=== PATIENT | male | born 1970 | race Caucasian/White ===

== ENCOUNTER 2021-01-26 13:00 | Inpatient (IN) | payer BC, OTHER ==
[~2021-01-26] VITALS: Ht 198.1 cm; Wt 129.5 kg
[2021-01-26] MEDS ORDERED: SODIUM CHLORIDE 0.9% 1,000ML IVBOLUS ONE (13:30)
--- NOTE | 2021-01-26 13:35 | NUR ---
PT HAS HAD COVID LIKE SYMPTOMS SINCE 01/17/2021 AFTER BEING EXPOSED TO SOMEONE WITH COVID. HAS HAD A SORE THROAT THAT HAS BEEN ONLY ABLE FRUIT AND SOFT FOOD LIKE PUDDING AND JELLO
[2021-01-26] MEDS ORDERED: PLEASE ENTER ALLERGIES MC SCH (14:00)
[2021-01-26 14:01] LABS: BASOPHILS % (AUTO) 0 % (0-1); EOSINOPHILS % (AUTO) 0 % (1-7); LYMPHOCYTES % (AUTO) 16 % (22-44); MEAN CORPUSCULAR HEMOGLOBIN 30.6 pg (27.5-34.5); MEAN CORPUSCULAR HGB CONC 34.3 g/dL (33.2-36.2); MEAN PLATELET VOLUME 7.6 fL (7.4-10.4); MONOCYTES % (AUTO) 8 % (2-9); NEUTROPHILS % (AUTO) 75 % (42-75); PLATELET COUNT 162 x10^3/uL (130-400); RED BLOOD COUNT 4.77 x10^6/uL (4.38-5.82); RED CELL DISTRIBUTION WIDTH 13.1 % (9.4-14.8)
--- NOTE | 2021-01-26 14:04 | NUR ---
SINCE THE December GENERAL WEAKNESS AND PAIN IN THE BACK OF NECK WITH A MINOR HEADACHE.
[2021-01-26 14:09] LABS: ANION GAP 10 mmol/L (5-15); CALCIUM 8.3 mg/dL (8.5-10.1); CHLORIDE 103 mmol/L (98-107)
[2021-01-26 14:12] LABS: TROPONIN I < 0.015 ng/mL (0.000-0.045)
[2021-01-26] MEDS ORDERED: SACU1TAB7 PO (14:53)
[2021-01-26] MEDS ORDERED: SPIR25TA5 PO (14:53)
[2021-01-26] MEDS ORDERED: CARV-39 PO (14:53)
[2021-01-26] MEDS ORDERED: METFORMIN PO (14:54)
[2021-01-26] MEDS ORDERED: NIAC-17 BC (14:56)
[2021-01-26] MEDS ORDERED: CEFTRIAXONE 1,000 MG in DEXTROSE 5% 50 ML IVPB ONE (15:00)
[2021-01-26] MEDS ORDERED: DEXAMETHASONE 4 MG/ML, 1ML IVPush ONE (15:00)
[2021-01-26] MEDS ORDERED: AZITHROMYCIN 500 MG in SODIUM CHLORIDE 0.9% 250 ML IV ONE (15:00)
[2021-01-26] MEDS ORDERED: DEXAMETHASONE 4 MG/ML, 1ML ONE (15:25)
--- NOTE | 2021-01-26 15:25 | NUR ---
ATTEMPTED TO GIVE REPORT X1. RN NOT AVAILABLE
[2021-01-26] MEDS ORDERED: ONDANSETRON 2MG/ML, 2ML IVPush PRN (15:30)
[2021-01-26] MEDS ORDERED: hydrALAzine 20 MG/ML, 1ML IVPush PRN (15:30)
[2021-01-26 15:37] LABS: BILIRUBIN, DIRECT 0.2 mg/dL (0.1-0.2)
--- NOTE | 2021-01-26 15:43 | NUR ---
REPORT TO LOPEZ LYONS AND TO BE TRANSPORTED TO FLOOR
[2021-01-26 15:47] LABS: BILIRUBIN,INDIRECT 0.3 mg/dL (0.0-2.0); BILIRUBIN,TOTAL 0.5 mg/dL (0.2-1.0); TOTAL PROTEIN 7.3 g/dL (6.4-8.2)
[2021-01-26] MEDS: INSULIN LISPRO 100 UNITS/ML, PEN SQ-INSULIN SCH ×2 (16:00→21:00)
[2021-01-26] MEDS: ASCORBIC ACID 250 MG TAB PO SCH (17:13)
[2021-01-26 17:19] LABS: MICROSCOPIC NOT IND
[2021-01-26] MEDS ORDERED: EMPA25TA PO (17:19)
[2021-01-26] MEDS: ENOXAPARIN 60 MG/0.6 ML SQ SCH (17:38)
[2021-01-26 17:42] VITALS: BP 133/81
[2021-01-26 17:50] LABS: RAPID INFLUENZA A Negative (Negative); RAPID INFLUENZA B Negative (Negative)
[2021-01-26 18:51] VITALS: BP 129/80
[2021-01-26 21:09] VITALS: BP 132/81
[2021-01-26] MEDS: SACUBITRIL/VALSARTAN 24MG-26MG TAB PO SCH (21:11)
[2021-01-26] MEDS: MELATONIN 5 MG TABLET PO SCH (21:11)
[2021-01-26] MEDS: GUAIFENESIN/COD200MG-20MG/10ML LIQUID PO PRN (21:11)
[2021-01-26] MEDS: THIAMINE 100MG TABLET PO SCH (21:11)
[2021-01-26] MEDS: CARVEDILOL 25 MG TABLET PO SCH (21:11)
[2021-01-26] MEDS: SODIUM CHLORIDE FLUSH 10ML SYR IVF SCH (21:12)
[2021-01-27 01:11] VITALS: BP 131/81
[2021-01-27] MEDS: GUAIFENESIN/COD200MG-20MG/10ML LIQUID PO PRN (04:23)
[2021-01-27] MEDS ORDERED: REMDESIVIR 200 MG in SODIUM CHLORIDE 0.9% 250 ML IVPB ONE (07:00)
[2021-01-27] MEDS ORDERED: ALBUTEROL HFA 90 MCG/SPRAY INH SCH (07:00)
[2021-01-27 07:41] VITALS: BP 142/82
[2021-01-27] MEDS: INSULIN LISPRO 100 UNITS/ML, PEN SQ-INSULIN SCH ×4 (07:51→21:57)
[2021-01-27] MEDS: CEFTRIAXONE 2 GM in DEXTROSE 5% 50 ML IVPB SCH (08:07)
[2021-01-27] MEDS: ZINC SULFATE 220 MG CAPSULE PO SCH (08:08)
[2021-01-27] MEDS: CARVEDILOL 25 MG TABLET PO SCH ×2 (08:08→20:50)
[2021-01-27] MEDS: AZITHROMYCIN 500 MG TABLET PO SCH (08:08)
[2021-01-27] MEDS: CHOLECALCIFEROL 1,000 UNIT TABLET PO SCH (08:08)
[2021-01-27] MEDS: DEXAMETHASONE 4 MG/ML, 1ML IVPush SCH (08:08)
[2021-01-27] MEDS: NIACIN 500 MG TABLET.ER PO SCH (08:08)
[2021-01-27] MEDS: THIAMINE 100MG TABLET PO SCH ×2 (08:09→20:51)
[2021-01-27] MEDS: ASCORBIC ACID 250 MG TAB PO SCH ×2 (08:09→16:04)
[2021-01-27] MEDS: SPIRONOLACTONE 25 MG TABLET PO SCH (08:09)
[2021-01-27] MEDS: SACUBITRIL/VALSARTAN 24MG-26MG TAB PO SCH ×2 (08:09→20:50)
[2021-01-27] MEDS: SODIUM CHLORIDE FLUSH 10ML SYR IVF SCH ×2 (08:10→20:51)
[2021-01-27 09:38] LABS: BASOPHILS % (AUTO) 0 % (0-1); EOSINOPHILS % (AUTO) 0 % (1-7); LYMPHOCYTES % (AUTO) 10 % (22-44); MEAN CORPUSCULAR HGB CONC 33.7 g/dL (33.2-36.2); MEAN PLATELET VOLUME 7.4 fL (7.4-10.4); MONOCYTES % (AUTO) 9 % (2-9); NEUTROPHILS % (AUTO) 81 % (42-75); PLATELET COUNT 188 x10^3/uL (130-400); RED BLOOD COUNT 4.62 x10^6/uL (4.38-5.82); RED CELL DISTRIBUTION WIDTH 13.3 % (9.4-14.8)
[2021-01-27 09:49] LABS: ANION GAP 12 mmol/L (5-15); CALCIUM 8.8 mg/dL (8.5-10.1); CHLORIDE 103 mmol/L (98-107)
[2021-01-27] MEDS ORDERED: ALBUTEROL SULFATE 2.5 MG/3 ML NPPB SCH (11:30)
[2021-01-27 12:20] VITALS: BP 129/79
[2021-01-27] MEDS: ALBUTEROL HFA 90 MCG/SPRAY INH SCH ×2 (15:00→21:56)
[2021-01-27] MEDS: ENOXAPARIN 60 MG/0.6 ML SQ SCH (16:08)
[2021-01-27 18:34] VITALS: BP 130/83
[2021-01-27] MEDS: MELATONIN 5 MG TABLET PO SCH (20:51)
[2021-01-27] MEDS ORDERED: INSULIN GLARGINE 100 UNITS/ML, PEN SQ-INSULIN SCH (21:00)
[2021-01-27 21:04] VITALS: BP 147/85
[2021-01-28] MEDS: ALBUTEROL HFA 90 MCG/SPRAY INH SCH ×4 (03:10→22:18)
[2021-01-28 03:11] VITALS: BP 121/77
[2021-01-28 05:58] LABS: ALBUMIN 2.7 g/dL (3.4-5.0); ANION GAP 8 mmol/L (5-15); CALCIUM 8.7 mg/dL (8.5-10.1); CHLORIDE 105 mmol/L (98-107)
[2021-01-28 06:01] LABS: ALANINE AMINOTRANSFERASE 37 U/L (12-78); ALKALINE PHOSPHATASE 51 U/L (45-117); BILIRUBIN,TOTAL 0.4 mg/dL (0.2-1.0); CREATININE 0.78 mg/dL (0.7-1.3); TOTAL PROTEIN 7.3 g/dL (6.4-8.2)
[2021-01-28] MEDS: INSULIN LISPRO 100 UNITS/ML, PEN SQ-INSULIN SCH ×4 (07:44→22:17)
[2021-01-28] MEDS: CEFTRIAXONE 2 GM in DEXTROSE 5% 50 ML IVPB SCH (07:44)
[2021-01-28 07:45] VITALS: BP 122/77
[2021-01-28] MEDS ORDERED: REMDESIVIR 100 MG in SODIUM CHLORIDE 0.9% 250 ML IVPB SCH (08:00)
[2021-01-28] MEDS: REMDESIVIR 100 MG in SODIUM CHLORIDE 0.9% 250 ML IVPB SCH (08:25)
[2021-01-28] MEDS ORDERED: INSULIN GLARGINE 100 UNITS/ML, PEN SQ-INSULIN SCH (09:00)
[2021-01-28] MEDS: NIACIN 500 MG TABLET.ER PO SCH (09:59)
[2021-01-28] MEDS: ZINC SULFATE 220 MG CAPSULE PO SCH (10:00)
[2021-01-28] MEDS: ASCORBIC ACID 250 MG TAB PO SCH ×2 (10:00→16:54)
[2021-01-28] MEDS: CHOLECALCIFEROL 1,000 UNIT TABLET PO SCH (10:01)
[2021-01-28] MEDS: SPIRONOLACTONE 25 MG TABLET PO SCH (10:01)
[2021-01-28] MEDS: AZITHROMYCIN 500 MG TABLET PO SCH (10:01)
[2021-01-28] MEDS: THIAMINE 100MG TABLET PO SCH ×2 (10:01→22:18)
[2021-01-28] MEDS: DEXAMETHASONE 4 MG/ML, 1ML IVPush SCH (10:02)
[2021-01-28] MEDS: SACUBITRIL/VALSARTAN 24MG-26MG TAB PO SCH ×2 (10:02→22:17)
[2021-01-28] MEDS: CARVEDILOL 25 MG TABLET PO SCH ×2 (10:02→22:18)
[2021-01-28] MEDS: SODIUM CHLORIDE FLUSH 10ML SYR IVF SCH ×2 (10:03→22:19)
[2021-01-28] MEDS: FUROSEMIDE 40 MG/4 ML IV SCH (10:31)
[2021-01-28] MEDS: ACETAMINOPHEN 325 MG TABLET PO PRN (10:32)
[2021-01-28 12:01] VITALS: BP 115/74
[2021-01-28] MEDS: ENOXAPARIN 60 MG/0.6 ML SQ SCH (16:52)
[2021-01-28 20:58] VITALS: BP 134/83
[2021-01-28] MEDS: INSULIN GLARGINE 100 UNITS/ML, PEN SQ-INSULIN SCH (22:17)
[2021-01-28] MEDS: MELATONIN 5 MG TABLET PO SCH (22:18)
[2021-01-28] MEDS: LINEZOLID 600 MG TABLET PO SCH (22:18)
[2021-01-29 00:27] VITALS: BP 124/85
[2021-01-29] MEDS: ALBUTEROL HFA 90 MCG/SPRAY INH SCH ×4 (04:32→21:55)
[2021-01-29 05:29] LABS: ALBUMIN 2.8 g/dL (3.4-5.0); ANION GAP 7 mmol/L (5-15); CALCIUM 9.2 mg/dL (8.5-10.1); CHLORIDE 105 mmol/L (98-107)
[2021-01-29 05:33] LABS: ALANINE AMINOTRANSFERASE 29 U/L (12-78); ALKALINE PHOSPHATASE 48 U/L (45-117); BILIRUBIN,TOTAL 0.4 mg/dL (0.2-1.0); CREATININE 0.88 mg/dL (0.7-1.3); TOTAL PROTEIN 7.1 g/dL (6.4-8.2)
[2021-01-29 06:36] VITALS: BP 126/74
[2021-01-29] MEDS: CEFTRIAXONE 2 GM in DEXTROSE 5% 50 ML IVPB SCH (07:49)
[2021-01-29] MEDS: INSULIN LISPRO 100 UNITS/ML, PEN SQ-INSULIN SCH ×4 (08:00→21:56)
[2021-01-29] MEDS: ASCORBIC ACID 250 MG TAB PO SCH ×2 (08:07→16:00)
[2021-01-29] MEDS: THIAMINE 100MG TABLET PO SCH ×2 (08:08→21:53)
[2021-01-29] MEDS: CHOLECALCIFEROL 1,000 UNIT TABLET PO SCH (08:08)
[2021-01-29] MEDS: CARVEDILOL 25 MG TABLET PO SCH ×2 (08:09→21:53)
[2021-01-29] MEDS: SACUBITRIL/VALSARTAN 24MG-26MG TAB PO SCH ×2 (08:09→21:53)
[2021-01-29] MEDS: ZINC SULFATE 220 MG CAPSULE PO SCH (08:09)
[2021-01-29] MEDS: SPIRONOLACTONE 25 MG TABLET PO SCH (08:10)
[2021-01-29] MEDS: FUROSEMIDE 40 MG/4 ML IV SCH (08:10)
[2021-01-29] MEDS: DEXAMETHASONE 4 MG/ML, 1ML IVPush SCH (08:10)
[2021-01-29] MEDS: SODIUM CHLORIDE FLUSH 10ML SYR IVF SCH ×2 (08:11→22:14)
[2021-01-29] MEDS: AZITHROMYCIN 500 MG TABLET PO SCH (08:14)
[2021-01-29] MEDS: LINEZOLID 600 MG TABLET PO SCH ×2 (08:14→21:53)
[2021-01-29] MEDS: NIACIN 500 MG TABLET.ER PO SCH (08:20)
[2021-01-29] MEDS: INSULIN GLARGINE 100 UNITS/ML, PEN SQ-INSULIN SCH ×2 (08:24→21:57)
[2021-01-29] MEDS: REMDESIVIR 100 MG in SODIUM CHLORIDE 0.9% 250 ML IVPB SCH (10:06)
[2021-01-29 12:01] VITALS: BP 125/83
[2021-01-29] MEDS ORDERED: FUROSEMIDE 20 MG/2 ML IV ONE (14:30)
[2021-01-29 15:41] VITALS: BP 121/79
[2021-01-29] MEDS: ENOXAPARIN 60 MG/0.6 ML SQ SCH (16:01)
[2021-01-29 20:04] VITALS: BP 130/89
[2021-01-29] MEDS: MELATONIN 5 MG TABLET PO SCH (21:54)
[2021-01-30] VITALS: BP 112/78
[2021-01-30] MEDS: ALBUTEROL HFA 90 MCG/SPRAY INH SCH ×4 (03:42→20:48)
[2021-01-30 05:54] LABS: CHLORIDE 103 mmol/L (98-107)
[2021-01-30 06:00] LABS: ALANINE AMINOTRANSFERASE 36 U/L (12-78); ALBUMIN 3.1 g/dL (3.4-5.0); ALKALINE PHOSPHATASE 56 U/L (45-117); ANION GAP 7 mmol/L (5-15); BILIRUBIN,TOTAL 0.6 mg/dL (0.2-1.0); CREATININE 0.78 mg/dL (0.7-1.3); TOTAL PROTEIN 7.8 g/dL (6.4-8.2)
[2021-01-30 08:10] VITALS: BP 111/76
[2021-01-30] MEDS: INSULIN LISPRO 100 UNITS/ML, PEN SQ-INSULIN SCH ×4 (09:17→21:01)
[2021-01-30] MEDS: INSULIN GLARGINE 100 UNITS/ML, PEN SQ-INSULIN SCH ×2 (09:17→21:00)
[2021-01-30] MEDS: CEFTRIAXONE 2 GM in DEXTROSE 5% 50 ML IVPB SCH (09:18)
[2021-01-30] MEDS: FUROSEMIDE 40 MG/4 ML IV SCH (09:18)
[2021-01-30] MEDS: LINEZOLID 600 MG TABLET PO SCH ×2 (09:18→20:47)
[2021-01-30] MEDS: AZITHROMYCIN 500 MG TABLET PO SCH (09:18)
[2021-01-30] MEDS: DEXAMETHASONE 4 MG/ML, 1ML IVPush SCH (09:18)
[2021-01-30] MEDS: CARVEDILOL 25 MG TABLET PO SCH ×2 (09:18→20:47)
[2021-01-30] MEDS: SPIRONOLACTONE 25 MG TABLET PO SCH (09:18)
[2021-01-30] MEDS: CHOLECALCIFEROL 1,000 UNIT TABLET PO SCH (09:19)
[2021-01-30] MEDS: ASCORBIC ACID 250 MG TAB PO SCH ×2 (09:19→16:44)
[2021-01-30] MEDS: SACUBITRIL/VALSARTAN 24MG-26MG TAB PO SCH ×2 (09:19→20:46)
[2021-01-30] MEDS: THIAMINE 100MG TABLET PO SCH ×2 (09:19→20:47)
[2021-01-30] MEDS: NIACIN 500 MG TABLET.ER PO SCH (09:20)
[2021-01-30] MEDS: ZINC SULFATE 220 MG CAPSULE PO SCH (09:20)
[2021-01-30] MEDS: SODIUM CHLORIDE FLUSH 10ML SYR IVF SCH ×2 (09:20→20:46)
[2021-01-30] MEDS: REMDESIVIR 100 MG in SODIUM CHLORIDE 0.9% 250 ML IVPB SCH (10:30)
[2021-01-30 12:20] VITALS: BP 111/76
[2021-01-30] MEDS: ENOXAPARIN 60 MG/0.6 ML SQ SCH (16:40)
[2021-01-30 20:28] VITALS: BP 131/86
[2021-01-30] MEDS: MELATONIN 5 MG TABLET PO SCH (20:46)
[2021-01-31 01:52] VITALS: BP 133/86
[2021-01-31] MEDS: ALBUTEROL HFA 90 MCG/SPRAY INH SCH ×2 (03:00→09:12)
[2021-01-31 05:21] LABS: ALBUMIN 2.8 g/dL (3.4-5.0); ANION GAP 5 mmol/L (5-15); CALCIUM 8.7 mg/dL (8.5-10.1); CHLORIDE 103 mmol/L (98-107)
[2021-01-31 05:25] LABS: ALANINE AMINOTRANSFERASE 42 U/L (12-78); ALKALINE PHOSPHATASE 48 U/L (45-117); BILIRUBIN,TOTAL 0.5 mg/dL (0.2-1.0); CREATININE 0.86 mg/dL (0.7-1.3); TOTAL PROTEIN 6.8 g/dL (6.4-8.2)
[2021-01-31] MEDS: INSULIN LISPRO 100 UNITS/ML, PEN SQ-INSULIN SCH ×4 (07:47→21:41)
[2021-01-31 07:57] VITALS: BP 121/80
[2021-01-31] MEDS: CEFTRIAXONE 2 GM in DEXTROSE 5% 50 ML IVPB SCH (09:09)
[2021-01-31] MEDS: FUROSEMIDE 40 MG/4 ML IV SCH (09:09)
[2021-01-31] MEDS: ASCORBIC ACID 250 MG TAB PO SCH ×2 (09:10→16:38)
[2021-01-31] MEDS: CHOLECALCIFEROL 1,000 UNIT TABLET PO SCH (09:10)
[2021-01-31] MEDS: SACUBITRIL/VALSARTAN 24MG-26MG TAB PO SCH ×2 (09:10→21:24)
[2021-01-31] MEDS: ZINC SULFATE 220 MG CAPSULE PO SCH (09:10)
[2021-01-31] MEDS: LINEZOLID 600 MG TABLET PO SCH ×2 (09:10→21:24)
[2021-01-31] MEDS: AZITHROMYCIN 500 MG TABLET PO SCH (09:10)
[2021-01-31] MEDS: THIAMINE 100MG TABLET PO SCH ×2 (09:10→21:24)
[2021-01-31] MEDS: DEXAMETHASONE 4 MG/ML, 1ML IVPush SCH (09:10)
[2021-01-31] MEDS: SODIUM CHLORIDE FLUSH 10ML SYR IVF SCH ×2 (09:11→21:23)
[2021-01-31] MEDS: CARVEDILOL 25 MG TABLET PO SCH ×2 (09:11→21:23)
[2021-01-31] MEDS: SPIRONOLACTONE 25 MG TABLET PO SCH (09:11)
[2021-01-31] MEDS: NIACIN 500 MG TABLET.ER PO SCH (09:17)
[2021-01-31] MEDS: INSULIN GLARGINE 100 UNITS/ML, PEN SQ-INSULIN SCH ×2 (09:19→21:40)
[2021-01-31] MEDS: REMDESIVIR 100 MG in SODIUM CHLORIDE 0.9% 250 ML IVPB SCH (10:20)
[2021-01-31 13:54] VITALS: BP 110/74
[2021-01-31 16:18] LABS: HCT (SEDRATE) 46.7 % (39.2-51.8)
[2021-01-31 16:19] LABS: BASOPHILS % (AUTO) 0 % (0-1); EOSINOPHILS % (AUTO) 0 % (1-7); LYMPHOCYTES % (AUTO) 6 % (22-44); MEAN CORPUSCULAR HEMOGLOBIN 30.2 pg (27.5-34.5); MEAN CORPUSCULAR HGB CONC 33.7 g/dL (33.2-36.2); MEAN PLATELET VOLUME 7.2 fL (7.4-10.4); MONOCYTES % (AUTO) 3 % (2-9); NEUTROPHILS % (AUTO) 91 % (42-75); PLATELET COUNT 292 x10^3/uL (130-400); RED BLOOD COUNT 5.24 x10^6/uL (4.38-5.82)
[2021-01-31] MEDS: ENOXAPARIN 60 MG/0.6 ML SQ SCH (16:38)
[2021-01-31 19:55] VITALS: BP 122/80
[2021-01-31] MEDS: MELATONIN 5 MG TABLET PO SCH (21:00)
[2021-02-01 01:38] VITALS: BP 120/78
[2021-02-01 05:35] LABS: BASOPHILS % (AUTO) 0 % (0-1); EOSINOPHILS % (AUTO) 1 % (1-7); LYMPHOCYTES % (AUTO) 14 % (22-44); MEAN CORPUSCULAR HEMOGLOBIN 30.6 pg (27.5-34.5); MEAN CORPUSCULAR HGB CONC 34.4 g/dL (33.2-36.2); MEAN PLATELET VOLUME 7.2 fL (7.4-10.4); MONOCYTES % (AUTO) 7 % (2-9); NEUTROPHILS % (AUTO) 78 % (42-75); PLATELET COUNT 289 x10^3/uL (130-400); RED BLOOD COUNT 5.04 x10^6/uL (4.38-5.82); RED CELL DISTRIBUTION WIDTH 13.1 % (9.4-14.8)
[2021-02-01 05:50] LABS: ALBUMIN 2.7 g/dL (3.4-5.0); ANION GAP 6 mmol/L (5-15); CALCIUM 8.9 mg/dL (8.5-10.1); CHLORIDE 105 mmol/L (98-107)
[2021-02-01 05:55] LABS: ALANINE AMINOTRANSFERASE 44 U/L (12-78); ALKALINE PHOSPHATASE 50 U/L (45-117); BILIRUBIN,TOTAL 0.6 mg/dL (0.2-1.0); CREATININE 0.64 mg/dL (0.7-1.3); TOTAL PROTEIN 6.8 g/dL (6.4-8.2)
[2021-02-01] MEDS: INSULIN LISPRO 100 UNITS/ML, PEN SQ-INSULIN SCH ×4 (07:20→21:46)
[2021-02-01] MEDS: CEFTRIAXONE 2 GM in DEXTROSE 5% 50 ML IVPB SCH (10:00)
[2021-02-01] MEDS: DEXAMETHASONE 4 MG/ML, 1ML IVPush SCH (10:00)
[2021-02-01] MEDS: FUROSEMIDE 40 MG/4 ML IV SCH (10:00)
[2021-02-01] MEDS: SPIRONOLACTONE 25 MG TABLET PO SCH (10:01)
[2021-02-01] MEDS: SACUBITRIL/VALSARTAN 24MG-26MG TAB PO SCH ×2 (10:01→21:45)
[2021-02-01] MEDS: ZINC SULFATE 220 MG CAPSULE PO SCH (10:01)
[2021-02-01] MEDS: ASCORBIC ACID 250 MG TAB PO SCH ×2 (10:01→17:28)
[2021-02-01] MEDS: AZITHROMYCIN 500 MG TABLET PO SCH (10:01)
[2021-02-01] MEDS: THIAMINE 100MG TABLET PO SCH ×2 (10:01→21:45)
[2021-02-01] MEDS: LINEZOLID 600 MG TABLET PO SCH ×2 (10:01→21:45)
[2021-02-01] MEDS: CHOLECALCIFEROL 1,000 UNIT TABLET PO SCH (10:01)
[2021-02-01] MEDS: CARVEDILOL 25 MG TABLET PO SCH ×2 (10:02→21:45)
[2021-02-01] MEDS: NIACIN 500 MG TABLET.ER PO SCH (10:02)
[2021-02-01] MEDS: SODIUM CHLORIDE FLUSH 10ML SYR IVF SCH ×2 (10:17→21:47)
[2021-02-01] MEDS: INSULIN GLARGINE 100 UNITS/ML, PEN SQ-INSULIN SCH ×2 (10:19→21:46)
[2021-02-01] MEDS: ACETAMINOPHEN 325 MG TABLET PO PRN (14:57)
[2021-02-01] MEDS: ENOXAPARIN 60 MG/0.6 ML SQ SCH (17:27)
[2021-02-01] MEDS ORDERED: INSULIN LISPRO 100 UNIT/ML, 3ML VIAL SQ-INSULIN ONE (17:30)
[2021-02-01 19:05] VITALS: BP 129/81
[2021-02-01] MEDS: MELATONIN 5 MG TABLET PO SCH (21:00)
[2021-02-01] MEDS ORDERED: OMNIPAQUE 350 MG/ML, 100ML BOTTLE ONE (21:00)
[2021-02-02 00:56] VITALS: BP 103/69
[2021-02-02 06:39] LABS: BASOPHILS % (AUTO) 0 % (0-1); EOSINOPHILS % (AUTO) 1 % (1-7); LYMPHOCYTES % (AUTO) 13 % (22-44); MEAN CORPUSCULAR HGB CONC 33.6 g/dL (33.2-36.2); MONOCYTES % (AUTO) 4 % (2-9); NEUTROPHILS % (AUTO) 81 % (42-75); PLATELET COUNT 276 x10^3/uL (130-400); RED BLOOD COUNT 4.87 x10^6/uL (4.38-5.82); RED CELL DISTRIBUTION WIDTH 12.9 % (9.4-14.8)
[2021-02-02 06:48] LABS: D-DIMER 0.89 ug/mlFEU (0.00-0.52)
[2021-02-02 06:50] LABS: ALANINE AMINOTRANSFERASE 34 U/L (12-78); ALBUMIN 2.6 g/dL (3.4-5.0); ANION GAP 7 mmol/L (5-15); CALCIUM 8.8 mg/dL (8.5-10.1); CHLORIDE 104 mmol/L (98-107); CREATININE 0.71 mg/dL (0.7-1.3)
[2021-02-02 06:56] LABS: ALKALINE PHOSPHATASE 47 U/L (45-117); BILIRUBIN,TOTAL 0.5 mg/dL (0.2-1.0); TOTAL PROTEIN 6.5 g/dL (6.4-8.2)
[2021-02-02] MEDS: INSULIN LISPRO 100 UNITS/ML, PEN SQ-INSULIN SCH ×4 (07:00→20:55)
[2021-02-02 07:16] LABS: HCT (SEDRATE) 43.5 % (39.2-51.8)
[2021-02-02 07:31] VITALS: BP 112/74
[2021-02-02] MEDS: CEFTRIAXONE 2 GM in DEXTROSE 5% 50 ML IVPB SCH (10:05)
[2021-02-02] MEDS: NIACIN 500 MG TABLET.ER PO SCH (10:10)
[2021-02-02] MEDS: INSULIN GLARGINE 100 UNITS/ML, PEN SQ-INSULIN SCH ×2 (10:10→20:55)
[2021-02-02] MEDS: CHOLECALCIFEROL 1,000 UNIT TABLET PO SCH (10:10)
[2021-02-02] MEDS: FUROSEMIDE 40 MG/4 ML IV SCH ×2 (10:10→20:54)
[2021-02-02] MEDS: ASCORBIC ACID 250 MG TAB PO SCH ×2 (10:11→16:26)
[2021-02-02] MEDS: DEXAMETHASONE 4 MG/ML, 1ML IVPush SCH (10:11)
[2021-02-02] MEDS: SODIUM CHLORIDE FLUSH 10ML SYR IVF SCH ×2 (10:11→20:55)
[2021-02-02] MEDS: ZINC SULFATE 220 MG CAPSULE PO SCH (10:11)
[2021-02-02] MEDS: CARVEDILOL 25 MG TABLET PO SCH ×2 (10:12→20:54)
[2021-02-02] MEDS: AZITHROMYCIN 500 MG TABLET PO SCH (10:12)
[2021-02-02] MEDS: THIAMINE 100MG TABLET PO SCH ×2 (10:12→20:54)
[2021-02-02] MEDS: SPIRONOLACTONE 25 MG TABLET PO SCH (10:13)
[2021-02-02] MEDS: SACUBITRIL/VALSARTAN 24MG-26MG TAB PO SCH ×2 (10:13→20:54)
[2021-02-02] MEDS: ENOXAPARIN 60 MG/0.6 ML SQ SCH (16:25)
[2021-02-02 19:46] VITALS: BP 143/84
[2021-02-02 20:52] VITALS: BP 130/88
[2021-02-02] MEDS: MELATONIN 5 MG TABLET PO SCH (20:56)
[2021-02-03 00:48] VITALS: BP 129/84
[2021-02-03 06:16] LABS: ANION GAP 8 mmol/L (5-15); CALCIUM 8.9 mg/dL (8.5-10.1); CHLORIDE 106 mmol/L (98-107); CREATININE 0.57 mg/dL (0.7-1.3)
[2021-02-03] MEDS: INSULIN LISPRO 100 UNITS/ML, PEN SQ-INSULIN SCH ×4 (07:23→21:00)
[2021-02-03 08:40] VITALS: BP 118/79
[2021-02-03] MEDS: INSULIN GLARGINE 100 UNITS/ML, PEN SQ-INSULIN SCH ×2 (09:39→21:00)
[2021-02-03] MEDS: NIACIN 500 MG TABLET.ER PO SCH (09:40)
[2021-02-03] MEDS: CEFTRIAXONE 2 GM in DEXTROSE 5% 50 ML IVPB SCH (09:40)
[2021-02-03] MEDS: ASCORBIC ACID 250 MG TAB PO SCH ×2 (09:40→16:23)
[2021-02-03] MEDS: CARVEDILOL 25 MG TABLET PO SCH ×2 (09:40→21:01)
[2021-02-03] MEDS: CHOLECALCIFEROL 1,000 UNIT TABLET PO SCH (09:41)
[2021-02-03] MEDS: FUROSEMIDE 40 MG/4 ML IV SCH ×2 (09:41→21:01)
[2021-02-03] MEDS: AZITHROMYCIN 500 MG TABLET PO SCH (09:41)
[2021-02-03] MEDS: SACUBITRIL/VALSARTAN 24MG-26MG TAB PO SCH ×2 (09:41→21:01)
[2021-02-03] MEDS: ZINC SULFATE 220 MG CAPSULE PO SCH (09:41)
[2021-02-03] MEDS: THIAMINE 100MG TABLET PO SCH ×2 (09:41→21:01)
[2021-02-03] MEDS: SODIUM CHLORIDE FLUSH 10ML SYR IVF SCH ×2 (09:42→21:01)
[2021-02-03] MEDS: DEXAMETHASONE 4 MG/ML, 1ML IVPush SCH (09:42)
[2021-02-03] MEDS ORDERED: SPIRONOLACTONE 25 MG TABLET PO ONE (10:00)
[2021-02-03 13:47] VITALS: BP 101/67
[2021-02-03] MEDS: ENOXAPARIN 60 MG/0.6 ML SQ SCH (16:23)
[2021-02-03] MEDS ORDERED: POTASSIUM CHLORIDE 20 MEQ TAB.ER.PRT PO SCH (17:00)
[2021-02-03 18:47] VITALS: BP 116/80
[2021-02-03] MEDS: MELATONIN 5 MG TABLET PO SCH (21:02)
[2021-02-03] MEDS: ACETAMINOPHEN 325 MG TABLET PO PRN (21:14)
[2021-02-04 01:10] VITALS: BP 117/78
[2021-02-04 07:34] VITALS: BP 93/59
[2021-02-04 07:40] LABS: ANION GAP 5 mmol/L (5-15); CALCIUM 8.9 mg/dL (8.5-10.1); CHLORIDE 105 mmol/L (98-107); CREATININE 0.57 mg/dL (0.7-1.3)
[2021-02-04 08:25] VITALS: BP 105/69
[2021-02-04] MEDS: SACUBITRIL/VALSARTAN 24MG-26MG TAB PO SCH (08:25)
[2021-02-04] MEDS: ASCORBIC ACID 250 MG TAB PO SCH (08:25)
[2021-02-04] MEDS: ZINC SULFATE 220 MG CAPSULE PO SCH (08:26)
[2021-02-04] MEDS: NIACIN 500 MG TABLET.ER PO SCH (08:26)
[2021-02-04] MEDS: THIAMINE 100MG TABLET PO SCH (08:26)
[2021-02-04] MEDS: AZITHROMYCIN 500 MG TABLET PO SCH (08:26)
[2021-02-04] MEDS: CHOLECALCIFEROL 1,000 UNIT TABLET PO SCH (08:26)
[2021-02-04] MEDS: DEXAMETHASONE 4 MG/ML, 1ML IVPush SCH (08:27)
[2021-02-04] MEDS: FUROSEMIDE 40 MG/4 ML IV SCH (08:27)
[2021-02-04] MEDS: CARVEDILOL 25 MG TABLET PO SCH (08:28)
[2021-02-04] MEDS: SODIUM CHLORIDE FLUSH 10ML SYR IVF SCH (08:31)
[2021-02-04] MEDS: INSULIN LISPRO 100 UNITS/ML, PEN SQ-INSULIN SCH ×2 (08:38→12:06)
[2021-02-04] MEDS: ACETAMINOPHEN 325 MG TABLET PO PRN (08:39)
[2021-02-04] MEDS: INSULIN GLARGINE 100 UNITS/ML, PEN SQ-INSULIN SCH (08:40)
[2021-02-04] MEDS ORDERED: POTASSIUM CHLORIDE 20 MEQ TAB.ER.PRT PO SCH (09:00)
[2021-02-04] MEDS ORDERED: SPIRONOLACTONE 25 MG TABLET PO SCH (09:00)
[2021-02-04] MEDS: CEFTRIAXONE 2 GM in DEXTROSE 5% 50 ML IVPB SCH (12:06)
[2021-02-04 16:06] VITALS: BP 110/72
[2021-02-05] MEDS ORDERED: FUROSEMIDE 40 MG/4 ML IV SCH (09:00)
== END 2021-02-04 17:28 | disposition home or self-care (01) | DRG 177 ==
LOC: ED 15:10 → EDIP 16:04 → 3N 16:05
PROVIDERS: ADMIT Family Medicine; ATTEND Hospitalist
PROC: XW033E5 Introduction of Remdesivir Anti-infective into Peripheral Vein, Percutaneous Approach, New Technology Group 5 (ICD-10-PCS; principal; 2021-01-27)
DX: U07.1 COVID-19 (principal); J96.01 Acute respiratory failure with hypoxia; I50.23 Acute on chronic systolic (congestive) heart failure; J12.82 Pneumonia due to coronavirus disease 2019; J15.211 Pneumonia due to Methicillin susceptible Staphylococcus aureus; E87.1 Hypo-osmolality and hyponatremia; E87.2 Acidosis; I42.8 Other cardiomyopathies; D72.810 Lymphocytopenia; E11.65 Type 2 diabetes mellitus with hyperglycemia; F41.9 Anxiety disorder, unspecified; I11.0 Hypertensive heart disease with heart failure; Z83.3 Family history of diabetes mellitus
CPT/HCPCS: 36415; 84145; 87400; 96374; 96375; 99285; C8929; 71045; 71275; 80048; 80053; 80076; 81003; 82040; 82728; 82947; 82962; 83036; 83605; 83615; 83735; 83880; 84100; 84443; 84484; 85025; 85379; 85384; 85651; 86140; 87040; 87070; 87077; 87186; 87205; 93005; G0378; J0456; J0696; J1100; J1650; J1940; Q9967; U0005; J1815; J1817; J7030; J7050; U0003